=== PATIENT | female | born 1965 | race Two or more races ===

== ENCOUNTER 2017-01-10 12:49 | Inpatient (IN) | payer MEDICAID, OTHER ==
[~2017-01-10] VITALS: Ht 165.1 cm; Wt 89.4 kg
[2017-01-10 13:47] LABS: Basophils # (auto) 0 uL; CONDITION Y; Eosinophils # (auto) 0 uL; Eosinophils % (auto) 0.2 % (0.0-7.0); Hematocrit 41.6 % (36.0-46.0); Hemoglobin 14.2 g/dL (12.2-16.2); Lymphocytes % (auto) 12.2 % (10.0-50.0); Mean Corpuscular Hemoglobin 30.7 pg (28.0-32.0); Mean Corpuscular Volume 90.2 fL (80.0-100.0); Mean Platelet Volume 7.9 fL (7.4-10.4); Monocytes # (auto) 0.7 uL; Neutrophils # (auto) 6.6 uL; Neutrophils % (auto) 79.6 % (37.0-80.0); Platelet Count (auto) 393 10^3/uL (140-450); Red Cell Distribution Width 14.6 % (11.6-16.0); White Blood Cell 8.3 10^3/uL (4.4-10.8)
[2017-01-10 13:57] LABS: Albumin 3.8 g/dL (3.4-5.0); Calcium 8.9 mg/dL (8.5-10.1); Potassium 3.6 mmol/L (3.5-5.1)
[2017-01-10 13:58] LABS: Bilirubin, Total 0.3 mg/dL (0.2-1.0); Total Protein 8.8 g/dL (6.4-8.2)
[2017-01-10] MEDS ORDERED: SODIUM CHLORIDE 0.9% 500 ML IVB ONE (14:04)
[2017-01-10] MEDS ORDERED: ONDANSETRON HCL 4 MG/2 ML VIAL IV ONE (14:15)
[2017-01-10 14:36] LABS: Magnesium 2.4 mg/dL (1.6-2.6)
[2017-01-10 16:11] LABS: Urine Bilirubin Negative (Negative); Urine Color Yellow (Yellow); Urine Glucose Normal (Normal); Urine Ketone Negative (Negative); Urine Mucus MANY (None Seen); Urine RBC 21 /hpf (0 - 4); Urine Squamous Epithelial Cell FEW /hpf (<5); Urine Urobilinogen Normal (Negative)
[2017-01-10 16:22] LABS: Urine Blood 3+ /uL (Negative); Urine Nitrite POSITIVE (Negative)
[2017-01-10] MEDS ORDERED: MORPHINE SULFATE 4 MG/ML SYRG IV ONE (16:30)
[2017-01-10] MEDS ORDERED: OMEP20CA74 PO (16:36)
[2017-01-10] MEDS ORDERED: DIVA500T7 PO (16:36)
[2017-01-10] MEDS ORDERED: CITA-73 PO (16:36)
[2017-01-10] MEDS ORDERED: QUET400T3 PO (16:36)
[2017-01-10] MEDS ORDERED: cefTRIAXone 1GM/50ML D5W 50 ML IV ONE (16:45)
[2017-01-10] MEDS ORDERED: ONDANSETRON HCL 4 MG/2 ML VIAL IV PRN (16:45)
[2017-01-10] MEDS ORDERED: MORPHINE SULF INJ 2 MG/ML SYRINGE 1ML IV PRN (16:45)
[2017-01-10] MEDS: SODIUM CHLORIDE 0.9% 1,000 ML IV SCH (17:36)
[2017-01-10 20:00] VITALS: BP 109/70
[2017-01-10 21:33] VITALS: BP 111/74
[2017-01-10] MEDS: metroNIDAZOLE 500MG/100ML 100 ML IV SCH (22:09)
[2017-01-10] MEDS: QUEtiapine FUMARATE 100 MG TAB PO SCH (22:09)
[2017-01-10 22:41] VITALS: BP 111/74
[2017-01-11] MEDS: SODIUM CHLORIDE 0.9% 1,000 ML IV SCH ×3 (02:45→06:08)
[2017-01-11 05:29] VITALS: BP 101/62
[2017-01-11 05:48] LABS: Basophils # (auto) 0 uL; Basophils % (auto) 0.3 % (0.0-2.0); CONDITION Y; Eosinophils # (auto) 0.1 uL; Eosinophils % (auto) 2.3 % (0.0-7.0); Hematocrit 34.1 % (36.0-46.0); Hemoglobin 11.4 g/dL (12.2-16.2); Lymphocytes # (auto) 1.2 uL; Lymphocytes % (auto) 18.9 % (10.0-50.0); Mean Corpuscular Hemoglobin 30.4 pg (28.0-32.0); Mean Corpuscular Hgb Conc. 33.5 g/dL (32.0-36.0); Mean Corpuscular Volume 90.5 fL (80.0-100.0); Mean Platelet Volume 8.1 fL (7.4-10.4); Monocytes # (auto) 0.6 uL; Monocytes % (auto) 10.1 % (0.0-12.0); Neutrophils # (auto) 4.4 uL; Neutrophils % (auto) 68.4 % (37.0-80.0); Platelet Count (auto) 318 10^3/uL (140-450); Red Cell Distribution Width 14.9 % (11.6-16.0); White Blood Cell 6.4 10^3/uL (4.4-10.8)
[2017-01-11 06:02] LABS: BUN/Creatinine Ratio 23.2; Calcium 7.7 mg/dL (8.5-10.1); Potassium 3.6 mmol/L (3.5-5.1)
[2017-01-11] MEDS: metroNIDAZOLE 500MG/100ML 100 ML IV SCH ×3 (06:09→21:46)
[2017-01-11 08:06] LABS: INR 0.95 (0.9-1.15); Partial Thromboplastin Time 25.4 sec (22.64-33.71); Prothrombin Time 10.3 sec (9.37-12.3)
[2017-01-11 09:00] VITALS: BP 96/61
[2017-01-11] MEDS: HYDROcodone-ACET 5/325MG TAB PO PRN ×2 (09:13→21:47)
[2017-01-11] MEDS: cefTRIAXone 1GM/50ML D5W 50 ML IV SCH (09:14)
[2017-01-11] MEDS: CITALOPRAM HYDROBR 20 MG TAB PO SCH (09:14)
[2017-01-11 12:46] VITALS: BP 92/56
[2017-01-11] MEDS ORDERED: GOLYTELY 4L KIT PO ONE (13:45)
[2017-01-11 16:35] VITALS: BP 97/57
[2017-01-11 20:00] VITALS: BP 107/55
[2017-01-11 21:30] VITALS: BP 107/55
[2017-01-11] MEDS: QUEtiapine FUMARATE 100 MG TAB PO SCH (21:47)
[2017-01-12 05:00] VITALS: BP 94/56
[2017-01-12] MEDS: metroNIDAZOLE 500MG/100ML 100 ML IV SCH ×3 (06:02→21:40)
[2017-01-12 06:43] LABS: Basophils # (auto) 0 uL; Basophils % (auto) 0.3 % (0.0-2.0); CONDITION Y; Eosinophils # (auto) 0.2 uL; Hematocrit 34.2 % (36.0-46.0); Hemoglobin 11.9 g/dL (12.2-16.2); Lymphocytes # (auto) 1.6 uL; Lymphocytes % (auto) 30.2 % (10.0-50.0); Mean Corpuscular Hemoglobin 31.5 pg (28.0-32.0); Mean Corpuscular Volume 90.2 fL (80.0-100.0); Mean Platelet Volume 8.2 fL (7.4-10.4); Monocytes # (auto) 0.5 uL; Monocytes % (auto) 10.4 % (0.0-12.0); Neutrophils # (auto) 2.9 uL; Neutrophils % (auto) 55.1 % (37.0-80.0); Platelet Count (auto) 324 10^3/uL (140-450); Red Cell Distribution Width 14.7 % (11.6-16.0); White Blood Cell 5.3 10^3/uL (4.4-10.8)
[2017-01-12 06:59] LABS: Potassium 3.3 mmol/L (3.5-5.1)
[2017-01-12 07:00] LABS: BUN/Creatinine Ratio 12.3; Calcium 7.6 mg/dL (8.5-10.1)
[2017-01-12] MEDS: SODIUM CHLORIDE 0.9% 1,000 ML IV SCH ×2 (08:45→14:22)
[2017-01-12 09:00] VITALS: BP 104/59
[2017-01-12] MEDS: cefTRIAXone 1GM/50ML D5W 50 ML IV SCH (09:16)
[2017-01-12] MEDS: CITALOPRAM HYDROBR 20 MG TAB PO SCH (09:16)
[2017-01-12] MEDS ORDERED: diphenhdrAMINE HCL 50 MG/1 ML VL ONE (10:27)
[2017-01-12] MEDS ORDERED: SODIUM CHLORIDE LOCK 10 ML ONE (10:27)
[2017-01-12] MEDS ORDERED: POTASSIUM CHLORIDE 40 MEQ, LIDOCAINE 1% (LOCAL ANESTH.) 4 ML in SODIUM CHL 0.9% 250 ML IV ONE (11:00)
[2017-01-12] MEDS: fentaNYL CITRATE 100 MCG/2 ML VL ONE ×3 (12:57→13:03)
[2017-01-12] MEDS: MIDAZOLAM HCL 5 MG/ML-1ML VIAL ONE ×3 (12:57→13:03)
[2017-01-12 13:00] VITALS: BP 107/61
[2017-01-12 16:27] VITALS: BP 94/51
[2017-01-12 21:34] VITALS: BP 112/71
[2017-01-12] MEDS: QUEtiapine FUMARATE 100 MG TAB PO SCH (21:41)
[2017-01-13] MEDS: SODIUM CHLORIDE 0.9% 1,000 ML IV SCH (04:59)
[2017-01-13 05:20] VITALS: BP 101/55
[2017-01-13 05:48] LABS: Basophils # (auto) 0 uL; Basophils % (auto) 0.2 % (0.0-2.0); CONDITION Y; Eosinophils # (auto) 0.2 uL; Eosinophils % (auto) 3.5 % (0.0-7.0); Hematocrit 33.9 % (36.0-46.0); Hemoglobin 11.4 g/dL (12.2-16.2); Lymphocytes # (auto) 1.8 uL; Lymphocytes % (auto) 31.4 % (10.0-50.0); Mean Corpuscular Hemoglobin 30.3 pg (28.0-32.0); Mean Corpuscular Hgb Conc. 33.7 g/dL (32.0-36.0); Mean Platelet Volume 8.3 fL (7.4-10.4); Monocytes # (auto) 0.6 uL; Monocytes % (auto) 10.9 % (0.0-12.0); Platelet Count (auto) 325 10^3/uL (140-450); Red Cell Distribution Width 14.4 % (11.6-16.0); White Blood Cell 5.6 10^3/uL (4.4-10.8)
[2017-01-13] MEDS: metroNIDAZOLE 500MG/100ML 100 ML IV SCH (06:00)
[2017-01-13 06:12] LABS: BUN/Creatinine Ratio 16.7; Calcium 8.2 mg/dL (8.5-10.1); Potassium 3.5 mmol/L (3.5-5.1)
[2017-01-13 09:00] VITALS: BP 92/60
[2017-01-13] MEDS: cefTRIAXone 1GM/50ML D5W 50 ML IV SCH (09:07)
[2017-01-13] MEDS: CITALOPRAM HYDROBR 20 MG TAB PO SCH (09:08)
[2017-01-13 11:51] VITALS: BP 92/60
== END 2017-01-13 12:45 | disposition home or self-care (01) | DRG 463 ==
LOC: ER 12:49 → OVERFLOW 12:50 → WEST WING 18:26
PROVIDERS: ADMIT Internal Medicine; ATTEND Internal Medicine
PROC: 0DBL8ZX Excision of Transverse Colon, Via Natural or Artificial Opening Endoscopic, Diagnostic (ICD-10-PCS; 2017-01-12)
PROC: 0DBM8ZX Excision of Descending Colon, Via Natural or Artificial Opening Endoscopic, Diagnostic (ICD-10-PCS; principal; 2017-01-12 12:55)
DX: N39.0 Urinary tract infection, site not specified (principal); I95.9 Hypotension, unspecified; K52.9 Noninfective gastroenteritis and colitis, unspecified; K80.20 Calculus of gallbladder without cholecystitis without obstruction; F15.10 Other stimulant abuse, uncomplicated; E66.9 Obesity, unspecified; F31.9 Bipolar disorder, unspecified; K21.9 Gastro-esophageal reflux disease without esophagitis; K64.8 Other hemorrhoids; F17.210 Nicotine dependence, cigarettes, uncomplicated; K42.9 Umbilical hernia without obstruction or gangrene; K59.00 Constipation, unspecified; K64.4 Residual hemorrhoidal skin tags; Z90.49 Acquired absence of other specified parts of digestive tract; Z83.3 Family history of diabetes mellitus; Z68.32 Body mass index [BMI] 32.0-32.9, adult
CPT/HCPCS: 36415; 71020; 74176; 80048; 80053; 80307; 81001; 82150; 83690; 83735; 84702; 85025; 85610; 85730; 87086; 87088; 87186; 87493; 93306; 94761; 96361; 96365; 96375; J0696; J2001; J2250; J2405; J3490